=== PATIENT | female | born 1995 | race Caucasian/White ===

== ENCOUNTER 2019-08-12 06:16 | Emergency (ER) | payer BC ==
[~2019-08-12] VITALS: Ht 160 cm; Wt 41.0 kg
--- NOTE | 2019-08-12 06:55 | NUR ---
chandu labs for a d-dimer, patient tolerated well
[2019-08-12 07:32] LABS: D-DIMER < 0.19 MG/L FEU (0-0.50)
[2019-08-12 07:48] VITALS: BP 96/55
--- NOTE | 2019-08-12 07:54 | NUR ---
patient resting comfortably, vitals rechecked and bp has decreased, pain is decreased now its 09/01
== END 2019-08-12 08:07 | disposition home or self-care (01) ==
LOC: ER 06:18
DX: R07.81 Pleurodynia (principal); I10 Essential (primary) hypertension; Z98.890 Other specified postprocedural states
CPT/HCPCS: 36415; 85379; 93005; 99284